=== PATIENT | female | born 1980 | race Caucasian/White ===

== ENCOUNTER 2023-03-19 08:07 | Outpatient (CLI) | payer OTHER, SELFPAY ==
--- NOTE | 2023-03-19 08:15 | CRLHL7_ITS ---
For Patients: As a result of the Century Cures Act, medical imaging exams and procedure reports are released immediately into your electronic medical record. You may view this report before your referring provider. If you have questions, please contact your health care provider. INDICATION: Headaches TECHNIQUE: TOF MRA of COW with 3D MIP provided. No comparisons. FINDINGS: The visualized first and second order intracranial vessels are unremarkable. Specifically, no suspicious narrowing or aneurysmal dilatation. IMPRESSION: Unremarkable MRA of the head as far as visualized. Dictated by Quan Miller MD @ 03/19/2023 7:14:05 PM (Electronically Signed)
--- NOTE | 2023-03-19 09:00 | CRLHL7_ITS ---
For Patients: As a result of the Century Cures Act, medical imaging exams and procedure reports are released immediately into your electronic medical record. You may view this report before your referring provider. If you have questions, please contact your health care provider. Indication: Headaches. Technique: Noncontrast sagittal T1, axial FLAIR, T2, diffusion weighted sequences are provided. No comparisons. Findings: Cerebellar tonsils extend 5-6 millimeters below the foramen magnum. The ventricles, sulci and gyri are normal size, shape and contour for age. The midline structures are centrally located with no evidence of shift. There are no suspicious intra or extra-axial fluid collections. No region of restricted diffusion. Expected flow voids in the cavernous carotids and basilar artery. Impression: 1. No radiographic evidence of acute intracranial abnormalities. 2. 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 Dictated by Quan Miller MD @ 03/19/2023 7:13:44 PM (Electronically Signed)
== END 2023-03-19 08:08 | disposition home or self-care (01) ==
LOC: MRI 08:08
PROVIDERS: PCP Physician Assistant Medical; Visit Provider Physician Assistant Medical
DX: R51.9 Headache, unspecified (principal); Q07.01 Arnold-Chiari syndrome with spina bifida
CPT/HCPCS: 70544; 70551

== ENCOUNTER 2024-01-15 10:36 | Outpatient (CLI) | payer OTHER, SELFPAY | END 2024-01-15 10:37 | disposition home or self-care (01) | PROVIDERS: PCP Physician Assistant Medical; Visit Provider Physician Assistant Medical | DX: E53.8 Deficiency of other specified B group vitamins (principal); D50.9 Iron deficiency anemia, unspecified; Z11.59 Encounter for screening for other viral diseases; Z13.29 Encounter for screening for other suspected endocrine disorder; Z13.220 Encounter for screening for lipoid disorders; Z13.228 Encounter for screening for other metabolic disorders | CPT/HCPCS: 80053; 80061; 82607; 83540; 83550; 84443; 86703; 86803 ==

== ENCOUNTER 2024-12-24 14:51 | Outpatient (CLI) | payer OTHER, SELFPAY | END 2024-12-24 14:52 | disposition home or self-care (01) | PROVIDERS: PCP Physician Assistant Medical; Visit Provider Physician Assistant Medical | DX: L65.9 Nonscarring hair loss, unspecified (principal); E53.8 Deficiency of other specified B group vitamins; D50.9 Iron deficiency anemia, unspecified; Z86.39 Personal history of other endocrine, nutritional and metabolic disease | CPT/HCPCS: 82306; 82607; 82670; 82746; 83540; 83550; 84403; 84630; 86431 ==

== ENCOUNTER 2025-04-14 11:55 | Outpatient (CLI) | payer OTHER, SELFPAY | END 2025-04-14 11:56 | disposition home or self-care (01) | PROVIDERS: PCP Physician Assistant Medical; Visit Provider Physician Assistant Medical | DX: Z00.00 Encounter for general adult medical examination without abnormal findings (principal); E78.00 Pure hypercholesterolemia, unspecified; E55.9 Vitamin D deficiency, unspecified | CPT/HCPCS: 80053; 80061; 82306 ==